=== PATIENT | female | born 1975 | race Two or more races ===

== ENCOUNTER 2018-03-10 17:21 | Emergency (ER) | payer OTHER ==
--- NOTE | 2018-03-10 18:29 | ED PDOC ---
Arrival/HPI - General Chief Complaint: Lower Extremity Problem/Injury Time Seen by Provider: 03/10/18 17:36 Historian: Patient - History of Present Illness Narrative History of Present Illness (Text): 03/10/18 18:07 42 year old female, whose medical history includes anal cancer with radiation and chemotherapy in 2008 and lower extremity lymphedema 3 years ago, presents to the Emergency department complaining of increased swelling and pain to lower legs for 1 week. Patient also complains of intermittent numbness. Patient denies any weakness, chest pain, shortness of breath, fever, chills, nausea, vomiting, diarrhea, urinary symptoms, back pain, headache, dizziness, or any other complaints. Time/Duration: 1 week Symptom Onset: Gradual Symptom Course: Unchanged Context: Home Past Medical History - Provider Review Nursing Documentation Reviewed: Yes - Reproductive Menopause: Yes (2008) - Hematological/Oncological Hx Cancer: Yes (rectal cancer, Radiation and chemo) - Musculoskeletal/Rheumatological Other/Comment: Lymphedema - Psychiatric Hx Substance Use: Yes - Surgical History Hx Section: Yes Other/Comment: Overian cyst removal Family/Social History - Physician Review Nursing Documentation Reviewed: Yes Family/Social History: Unknown Family HX Smoking Status: Former Smoker Hx Alcohol Use: No Hx Substance Use: Yes Allergies/Home Meds Allergies/Adverse Reactions: Allergies No Known Allergies Allergy (Verified 03/10/18 17:37) Home Medications: Home Meds Medication Instructions Recorded Confirmed Olanzapine/Fluoxetine HCl [Symbyax 1 cap NEB BID 03/10/18 03/10/18 3-25 mg Capsule] Review of Systems - Physician Review All systems were reviewed & negative as marked: Yes - Review of Systems Constitutional: absent: Fevers, Night Sweats Respiratory: absent: SOB Cardiovascular: absent: Chest Pain Gastrointestinal: absent: Diarrhea, Nausea, Vomiting Genitourinary Female: absent: Dysuria Musculoskeletal: absent: Back Pain Neurological: Other (intermittent numbness). absent: Headache, Dizziness Hemo/Lymphatic: Other (lymphedema) Physical Exam Vital Signs Reviewed: Yes Vital Signs Temp Pulse Resp BP Pulse Ox 03/10/18 19:28 98.2 F 92 H 17 125/79 100 03/10/18 18:51 113/79 03/10/18 17:34 105 H 18 125/93 H 99 03/10/18 17:25 97.9 F Blood Pressure: Hypertensive Pulse: Tachycardic Respiratory Rate: Normal Appearance: Positive for: Well-Appearing, Non-Toxic, Comfortable Pain Distress: None Mental Status: Positive for: Alert and Oriented X 3 - Systems Exam Head: Present: Atraumatic, Normocephalic Pupils: Present: PERRL Extroacular Muscles: Present: EOMI Conjunctiva: Present: Normal Mouth: Present: Moist Mucous Membranes Neck: Present: Normal Range of Motion Respiratory/Chest: Present: Clear to Auscultation, Good Air Exchange. No: Respiratory Distress, Accessory Muscle Use Cardiovascular: Present: Regular Rate and Rhythm, Normal S1, S2. No: Murmurs Abdomen: No: Tenderness, Distention, Peritoneal Signs Back: Present: Normal Inspection Upper Extremity: Present: Normal Inspection. No: Cyanosis, Edema Lower Extremity: Present: Swelling (swelling up to knees) Neurological: Present: GCS=15, CN II-XII Intact, Speech Normal Skin: Present: Warm, Dry, Normal Color. No: Rashes Psychiatric: Present: Alert, Oriented x 3, Normal Insight, Normal Concentration Medical Decision Making ED Course and Treatment: 03/10/18 18:10 Impression: 42 year old female presents to the Emergency department complaining of lower extremity swelling and pain. Differential Diagnosis included but are not limited to: worsening lymphedema vs. acute renal failure vs. worsening CHF Plan: -- Lower Extremity US -- Labs -- Ultram -- Reassess and disposition Progress Notes: - Lab Interpretations Lab Results: 03/10/18 18:30 03/10/18 18:30 Lab Results 03/10/18 18:30: Sodium 141, Potassium 4.1, Chloride 104, Carbon Dioxide 31, Anion Gap 10, BUN 16, Creatinine 0.7, Est GFR ( Amer) > 60, Est GFR (Non- Af Amer) > 60, Random Glucose 82, Calcium 9.1, Magnesium 1.8, Lactate Dehydrogenase 393, Total Creatine Kinase 53, Troponin I < 0.01, NT-Pro-B Natriuret Pep 120 03/10/18 18:30: PT 11.9, INR 1.04, APTT 31.1 03/10/18 18:30: WBC 2.9 L*, RBC 3.65, Hgb 10.3 L, Hct 30.8 L, MCV 84.4, MCH 28.2 , MCHC 33.4, RDW 13.2, Plt Count 213, MPV 8.9, Gran % 45.9 L, Lymph % (Auto) 37.6 H, Wheeler % (Auto) 5.5, Eos % (Auto) 10.3 H, Baso % (Auto) 0.7, Gran # 1.33 L , Lymph # (Auto) 1.1 L, Wheeler # (Auto) 0.2, Eos # (Auto) 0.3, Baso # (Auto) 0.02 - RAD Interpretation Narrative RAD Interpretations (Text): 03/10/2018 18:49:32 TECHNIQUE: Duplex sonography and color-flow Doppler with graded compression were used to evaluate the deep venous systems of both lower extremities. FINDINGS: The visualized deep venous systems of both lower extremities are sonographically normal and compressible. Normal wave forms and augmentation are seen. There is no sonographic evidence for deep venous thrombosis in the visualized segments of both lower extremities. IMPRESSION: No sonographic evidence for deep venous thrombosis in the visualized segments of both lower extremities. Radiology Orders: 03/10/18 17:54 DUPLEX LOWER EXTRM VEIN BILAT [US] Stat - Medication Orders Current Medication Orders: Discontinued Medications Furosemide (Lasix) 40 mg IVP STAT STA Stop: 03/10/18 18:33 Last Admin: 03/10/18 18:51 Dose: 40 mg MAR Blood Pressure Document 03/10/18 18:51 EWO (Rec: 03/10/18 18:51 [facility] [id number]) Blood Pressure Blood Pressure (100/60-150/90) 113/79 IVP Administration Document 03/10/18 18:51 EWO (Rec: 03/10/18 18:51 [facility] [id number]) Charges for Administration # of IVP Administrations 1 Tramadol HCl (Ultram) 50 mg PO STAT STA Stop: 03/10/18 17:56 Last Admin: 03/10/18 18:22 Dose: 50 mg MAR Pain Assessment Document 03/10/18 18:22 EWO (Rec: 03/10/18 18:22 [facility] [id number]) Pain Reassessment Is this a pain reassessment? No Sleep Is patient sleeping during reassessment? Yes - Scribe Statement The provider has reviewed the documentation as recorded by the Jovany Aponte Provider Scribe Attestation: All medical record entries made by the Scribe were at my direction and personally dictated by me. I have reviewed the chart and agree that the record accurately reflects my personal performance of the history, physical exam, medical decision making, and the department course for this patient. I have also personally directed, reviewed, and agree with the discharge instructions and disposition. Disposition/Present on Arrival - Present on Arrival History of DVT/PE: No History of Uncontrolled Diabetes: No Urinary Catheter: No History of Decub. Ulcer: No History Surgical Site Infection Following: None - Disposition Diagnosis: Chronic acquired lymphedema Disposition: HOME/ ROUTINE Condition: IMPROVED Discharge Instructions (ExitCare): Lymphedema Additional Instructions: Ms Valentin, thank you for letting us take care of you today. Your provider was Dr. Lea. You were treated for Lymphadema. The emergency medical care you received today was directed at your acute symptoms. If you were prescribed any medication, please fill it and take as directed. It may take several days for your symptoms to resolve. Return to the Emergency Department if your symptoms worsen, do not improve, or if you have any other problems. Please contact your doctor or call one of the physicians/clinics you have been referred to that are listed on the Patient Visit Information form that is included in your discharge packet. Bring any paperwork you were given at discharge with you along with any medications you are taking to your follow up visit. Our treatment cannot replace ongoing medical care by a primary care provider (PCP) outside of the emergency department. Thank you for allowing the [facility] team to be part of your care today. If you had an X-Ray or CT scan: A Radiologist will review the ED reading if any change in treatment is needed we will contact you. If you had a blood, urine, or wound culture: It will take several days for the results, if any change in treatment is needed we will contact you. If you had an STI test: It will take 48 hours for the results. Please call after 1 week if you have not heard back. Prescriptions: traMADol [Ultram] 50 mg PO Q6H PRN #20 tab PRN Reason: Pain, Moderate (4-7) Referrals: [facility] Jose Remigel, [Primary Care Provider] - Follow up with primary Forms: [employer] (Irish), WORK NOTE
[2018-03-10 18:35] LABS: BASO # 0.02 K/mm3 (0.0-2.0); BASO % 0.7 % (0.0-3.0); EOS # 0.3 (0.0-0.7); EOS % 10.3 % (1.5-5.0); GRAN # 1.33 (1.4-6.5); GRAN % 45.9 % (50.0-68.0); HEMOGLOBIN 10.3 g/dL (12.0-16.0); LYMPH # 1.1 (1.2-3.4); LYMPH % 37.6 % (22.0-35.0); MEAN CELL VOLUME 84.4 fl (80.0-105.0); MEAN CORPUSCULAR HEMOGLOBIN 28.2 pg (25.0-35.0); MEAN CORPUSCULAR HGB CONC 33.4 g/dl (31.0-37.0); MEAN PLATELET VOLUME 8.9 fl (7.0-11.0); MONO # 0.2 (0.1-0.6); MONO % 5.5 % (1.0-6.0); RBC 3.65 10^6/uL (3.5-6.1); RED CELL DISTRIBUTION WIDTH 13.2 % (11.5-14.5)
[2018-03-10 18:38] LABS: WHITE BLOOD COUNT 2.9 10^3/ul (4.5-11.0)
[2018-03-10 18:47] LABS: BLOOD UREA NITROGEN 16 mg/dL (7-21); CALCIUM 9.1 mg/dL (8.4-10.5); GFR AFRICAN-AMERICAN > 60; GFR NON-AFRICAN AMERICAN > 60
[2018-03-10 18:48] LABS: INR 1.04 (0.93-1.08); PARTIAL THROMBOPLASTIN TIME 31.1 Seconds (25.1-36.5); PROTHROMBIN TIME 11.9 SECONDS (9.4-12.5)
--- NOTE | 2018-03-10 18:51 | US ---
HISTORY: Leg pain and swelling. Evaluate for DVT PHYSICIAN(S): Satya Mae MD. TECHNIQUE: Duplex sonography and color-flow Doppler with graded compression were used to evaluate the deep venous systems of both lower extremities. FINDINGS: The visualized deep venous systems of both lower extremities are sonographically normal and compressible. Normal wave forms and augmentation are seen. There is no sonographic evidence for deep venous thrombosis in the visualized segments of both lower extremities. IMPRESSION: No sonographic evidence for deep venous thrombosis in the visualized segments of both lower extremities.
[2018-03-10 18:59] LABS: B-TYPE NATRIURETIC PEPTIDE 120 pg/mL (0-450); TROPONIN I < 0.01 ng/mL
[2018-03-10 19:30] VITALS: BP 125/79; PULSE 92; RESP 17; TEMP 98.2; O2SAT 100
== END 2018-03-10 19:30 | disposition home or self-care (01) ==
LOC: ED 17:21
DX: I89.0 Lymphedema, not elsewhere classified (principal); Z87.891 Personal history of nicotine dependence
CPT/HCPCS: 80048; 82550; 83615; 83735; 83880; 84484; 85025; 85610; 85730; 93970; 96374; 99283; J1940